=== PATIENT | female | born 1965 | race Caucasian/White ===

== ENCOUNTER 2024-09-02 14:18 | Outpatient (REF) | payer BC, SELFPAY ==
[2024-09-07 18:39] LABS: Immunoglobulin E 14 kU/L (<OR=114)
== END 2024-09-02 14:19 | disposition home or self-care (01) ==
LOC: HO.LAB 14:18
PROVIDERS: Visit Provider Allergy & Immunology
DX: T78.05XD Anaphylactic reaction due to tree nuts and seeds, subsequent encounter (principal); T78.3XXD Angioneurotic edema, subsequent encounter
CPT/HCPCS: 36415; 82785; 86003